=== PATIENT | female | born 1995 | race Caucasian/White ===

== ENCOUNTER 2018-08-03 23:22 | Emergency (ER) | payer MEDICAID, OTHER ==
[~2018-08-03] VITALS: Ht 154.9 cm; Wt 60.9 kg
[2018-08-03 23:39] VITALS: Ht 154.9 cm; Wt 60.9 kg
[2018-08-04] MEDS ORDERED: ONDANSETRON 4 MG INJ IV STA (06:12)
[2018-08-04] MEDS ORDERED: SOD CHLORIDE 0.9% 1,000 ML IV STA (06:12)
[2018-08-04] MEDS ORDERED: KETOROLAC 30 MG INJ IV STA (06:12)
[2018-08-04] MEDS ORDERED: BUTA1CAP38 PO (07:20)
[2018-08-04] MEDS ORDERED: CARB15SO5 MM (07:20)
[2018-08-04 07:32] VITALS: BP 112/71; PULSE 66; RESP 17
--- NOTE | 2018-08-05 06:50 | ERD ---
ER Documentation Chief Complaint Chief Complaint C/O CAMPOS AND NECK PAIN X5 DAYS HPI 23-yr-old female presenting with a headache and neck pain x5 days. Patient was seen at [place] 5 days ago and states her pain is consistent. She took Motrin last night with no alleviation's. She has no fevers. She does not have any neck stiffness and no visual changes. Pain is located to the right side of her head. Denies vomiting. Denies medical problems. NKDA. Surgical history denies. Social history denies ROS All systems reviewed and are negative except as per history of present illness. Medications Home Meds Active Scripts Carbamide Peroxide (Gly-Oxide) 15 Ml Solution, 15 ML MM TID, #1 Prov:MAGNUS RAMIRES PA-C 08/04/18 Wyqefcnlko-Oragaqbajzrhi-Uzlqzmfo* (Fioricet*) 50-300-40 Mg Capsule, 1 CAP PO Q4H PRN for HEADACHE, #30 CAP Prov:MAGNUS RAMIRES PA-C 08/04/18 Allergies Allergies: Coded Allergies: No Known Allergy (Unverified , 03/03/13) PMhx/Soc History of Surgery: No Anesthesia Reaction: No Hx Neurological Disorder: No Hx Respiratory Disorders: No Hx Cardiac Disorders: No Hx Psychiatric Problems: No Hx Miscellaneous Medical Probl: Yes (soccer injurty to right knee) Hx Alcohol Use: Yes (occasional) Hx Substance Use: No Hx Tobacco Use: No FmHx Family History: No diabetes, No coronary disease, No other Physical Exam Vitals Vital Signs Date Temp Pulse Resp B/P (MAP) Pulse Ox O2 O2 Flow FiO2 Time Delivery Rate 08/04/18 97.4 66 17 112/71 100 Room Air 07:32 (85) 08/03/18 97.3 67 18 134/61 100 23:39 (85) Physical Exam GENERAL: The patient is well-appearing, well-nourished, in no acute distress HEENT: Atraumatic. Conjunctivae are pink. Pupils equal, round, and reactive to light. There is no scleral icterus. Tympanic membranes clear bilaterally. Or opharynx clear. NECK: C-spine is soft and supple. There is no meningismus. There is no cervical lymphadenopathy. CHEST: Clear to auscultation bilaterally. There are no rales, wheezes or rhonchi. HEART: Regular rate and rhythm. No murmurs, clicks, rubs or gallops. NEUROLOGIC: Alert and oriented. Cranial nerves II through XII intact. Motor strength in all 4 extremities with 5 out of 5 strength. Sensation grossly intact. Normal speech and gait. Results 24 hrs Laboratory Tests Test 08/04/18 06:21 08/04/18 06:30 POC Beta HCG, Qualitative NEGATIVE Urine Color YELLOW Urine Clarity CLEAR Urine pH 6.0 Urine Specific [place] 1.010 Urine Ketones NEGATIVE mg/dL Urine Nitrite NEGATIVE mg/dL Urine Bilirubin NEGATIVE mg/dL Urine Urobilinogen NEGATIVE mg/dL Urine Leukocyte Esterase NEGATIVE Nemesio/ul Urine Microscopic RBC 1 /HPF Urine Microscopic WBC 5 /HPF Urine Squamous Epithelial Cells FEW /HPF Urine Bacteria FEW /HPF Urine Hemoglobin 3+ mg/dL Urine Glucose NEGATIVE mg/dL Urine Total Protein NEGATIVE mg/dl Current Medications Medications Dose Sig/Andrei Start Time Status Last (Trade) Ordered Route PRN Stop Time Admin Dose Reason Admin Sodium 1,000 ml @ Q1H STAT 08/04/18 DC 08/04/18 Chloride 1,000 mls/hr IV 06:12 06:32 08/04/18 07:11 Ondansetron 4 mg ONCE STAT 08/04/18 DC 08/04/18 HCl (Zofran IV 06:12 06:33 Inj) 08/04/18 06:14 Ketorolac 30 mg ONCE STAT 08/04/18 DC 08/04/18 Tromethamine IV 06:12 06:33 (Toradol) 08/04/18 06:14 Procedures/MDM Course: 1 L normal saline given ED. Toradol, Zofran and Benadryl given. On reevaluation patient symptoms had dramatically improved she states she no longer had a headache. MDM: 23-year-old female presenting with headache. I have low suspicion for meningitis or sepsis. Patient had relief of symptoms with IV medications in the ER and fluids. I do not feel that blood work or CT scan is indicated at this time. Patient is told symptoms change or worsen to return immediately to the ER. All questions answered at discharge Departure Diagnosis: Primary Impression: Headache Condition: Stable Patient Instructions: Self-Care for Headaches Referrals: COMM[facility]ITY CLINICS YOU HAVE RECEIVED A MEDICAL SCREENING EXAM AND THE RESULTS INDICATE THAT YOU DO NOT HAVE A CONDITION THAT REQUIRES URGENT TREATMENT IN THE EMERGENCY DEPARTMENT. FURTHER EVALUATION AND TREATMENT OF YOUR CONDITION CAN WAIT UNTIL YOU ARE SEEN IN YOUR DOCTORS OFFICE WITHIN THE NEXT 1-2 DAYS. IT IS YOUR RESPONSIBILITY TO MAKE AN APPOINTMENT FOR FOLOW-UP CARE. IF YOU HAVE A PRIMARY DOCTOR --you should call your primary doctor and schedule an appointment IF YOU DO NOT HAVE A PRIMARY DOCTOR YOU CAN CALL OUR PHYSICIAN REFERRAL HOTLINE AT IF YOU CAN NOT AFFORD TO SEE A PHYSICIAN YOU CAN CHOSE FROM THE FOLLOWING [facility] [address] [facility] [address] [facility] [address] [facility] [address] [facility] [address] [facility] [facility]. [address] Additional Instructions: FOLLOW UP WITH YOUR PRIMARY CARE PHYSICIAN TOMORROW.Return to this facility if you are not improving as expected. MAGNUS RAMIRES PA-C August 05, 2018 06:50
== END 2018-08-04 07:34 | disposition home or self-care (01) ==
LOC: FTE 23:22
DX: R51 Headache (principal)
CPT/HCPCS: 81001; 81025; J1885; J2405; J7030; 96374; 96375